=== PATIENT | male | born 1960 | race Caucasian/White ===

== ENCOUNTER 2020-07-04 18:45 | IRF | payer MEDICARE, SELFPAY ==
--- NOTE | 2020-07-04 18:21 | ADMGEN ---
This patient, Jair Mullins, was admitted to [facility] Room 230-02. Patient/family oriented to hospital policies and general routines including ID bracelet, bed and alarms, visiting hours, pain management, procedures, bathroom and other care routines, personal items, smoking policy, room service/diet, and visiting hours. Information on how to activate the Rapid Response Team has been discussed. Patient/Family are encouraged to report perceived risks to care and to ask questions if they do not understand what they are told or what they should do.
[2020-07-04 18:51] VITALS: BMI 22.0
[2020-07-04 18:52] VITALS: BP 155/84; PULSE 101; RESP 20; TEMP 36.4; O2SAT 100
--- NOTE | 2020-07-04 19:27 | PC.NURSE ---
Patient arrived on the floor at 1820, Patient and state they left the discharge paperwork at home, I called the hospital for them to fax d/c summary and med list. Patient's states she is not supposed to drive at night and will bring papers tomorrow. Dr. Paulson is aware. At 1930 hospital was called again for discharge notes.
[2020-07-04 20:35] VITALS: BP 127/65; PULSE 96; RESP 20; TEMP 36.6; O2SAT 100
[2020-07-04] MEDS: HYDROcodone/acetaminophen (*CRX) 5-325 MG TABLET 1 TAB (23:30)
[2020-07-05] MEDS: traMADol HCL (*CRX) 50 MG TABLET PO ×2 (00:54→09:07)
[2020-07-05 04:53] LABS: Basophils Percent Auto 0.4 % (0.2-1.2); Eosinophils Absolute Auto 0.1 K/mm3 (0-0.3); Eosinophils Percent Auto 1.6 % (0-4.4); Hemoglobin 8.4 g/dL (14.0-18.0); Immature Granulocyte Absolute 0.03 K/mm3 (0.00-0.031); Immature Granulocyte Percent A 0.4 % (0-0.5); Lymphocytes Absolute Auto 2.88 K/mm3 (0.9-3.2); Lymphocytes Percent Auto 35.2 % (18.3-44.2); Mean Corpuscular HGB Conc 31.1 g/dl (32-36); Mean Corpuscular Hemoglobin 26.7 pg (26-34); Mean Corpuscular Volume 85.7 fl (80-100); Mean Platelet Volume 10.5 fl (7.4-10.4); Monocytes Absolute Auto 0.9 K/mm3 (0.1-0.6); Neutrophils Absolute Auto 4.2 K/mm3 (1.3-6.7); Neutrophils Percent Auto 51.4 % (45.5-73.1); Platelet Count Result 199 k/mm3 (150-375); Red Blood Count 3.15 M/mm3 (4.6-6.20); White Blood Count 8.2 K/mm3 (4.5-10.0)
[2020-07-05 05:08] LABS: Alanine Aminotransferase 32 U/L (4-50); Albumin Level 3.7 g/dL (3.5-5.1); Alkaline Phosphatase 86 U/L (38-126); Anion Gap 6 mmol/L (8-16); Aspartate Amino Transferase 41 U/L (17-59); Bilirubin,Total 0.6 mg/dL (0.2-1.3); Blood Urea Nitrogen 11 mg/dL (9-20); Calcium 8.7 mg/dL (8.4-10.2); Carbon Dioxide 28 mmol/L (22-30); Chloride 100 mmol/L (98-107); Estimated CRCL calculation 101 ml/min; Estimated Glomerular Filt Rate > 60; Glucose 118 mg/dL (75-110); Potassium 3.9 mmol/L (3.4-5.0); Sodium 134 mmol/L (137-145)
[2020-07-05 05:35] LABS: Platelet Estimate Adequate (Adequate)
[2020-07-05 05:36] LABS: Hypochromasia 1+ (NORMAL); Microcytosis 1+ (NORMAL)
[2020-07-05 06:00] VITALS: BP 132/73; PULSE 90; RESP 20; TEMP 36.8; O2SAT 100
[2020-07-05] MEDS: MELATONIN 5 MG TABLET PO ×2 (06:48→22:08)
[2020-07-05] MEDS: RIVAROXABAN 2.5 MG TABLET PO ×2 (08:59→22:06)
[2020-07-05] MEDS: SENNOSIDES 8.6 MG TABLET PO ×2 (08:59→16:46)
[2020-07-05 09:00] VITALS: PULSE 90
[2020-07-05] MEDS: ASPIRIN 81 MG ENTERIC TABLET PO (09:00)
[2020-07-05] MEDS: METOPROLOL SUCCINATE EXT REL 25 MG TABCR PO (09:00)
[2020-07-05] MEDS: PREGABALIN (*CRX) 75 MG CAPSULE 150 MG PO ×2 (09:02→16:46)
--- NOTE | 2020-07-05 10:00 | WPDREHABHP ---
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 The patient is a 59-year-old gentleman with past medical history peripheral vascular disease with multiple revascularization of his right lower extremity who presented to [facility] on June 28, 2020 with severe right lower extremity pain. Patient underwent on January 2020 a right fem bypass. The graft occluded any underwent a thrombectomy and revision on April of 2020. This occluded. He then underwent a femoral arterial tibial artery bypass a few days later. Patient was doing well and graft was patent on 06/27/[address] Abreu in clinic. However patient was cleaning and bending his knee for approximately 5 minutes and had severe cramping with loss of sensation to his right lower extremity. Patient was seen in the emergency department were findings showed no evidence of blood flow to the right lower extremity. Non invasive study showed occlusion of the graft as well as occlusion of the pala right SFA, popliteal arteries and the right common femoral artery. Dr. Abreu was consulted in the ED. Patient was started on a heparin drip and IV Dilaudid for pain management on 06/30/2020 the patient underwent a right AKA with Dr. Abreu. postop course: Acute postoperative pain, hypertension, urinary retention with Espinosa catheter placed 06/30/20, acute blood loss anemia, hyponatremia, hyperglycemia, leukocytosis currently patient is controlled with oral analgesics for pain. Patient remains nonweightbearing to the right lower extremity. Patient is transferred to [facility] on Xarelto and aspirin for DVT prophylaxis until assessed further by surgeon after rehab. drove patient to [facility] from [place]. Apparently, and patient stopped at their house and his transferred was delayed for 3-4 hours. Discharge papers were left at their home. [facility] staffed called [facility] received the med list after numerous attempts. Today, has delivered the discharge paperwork. Therapy was initiated at the acute care facility and the patient transferred to us from [facility] on 07/04/20. COVID: The patient has not traveled outside the [place] or had contact with someone who is ill that his travel outside the [place] in the past 21 days. The patient has not traveled to an area of the [place] that is experiencing known transmission of the Coronavirus and has not had close personal contact with anyone that has. The patient does not have a fever. The patient is not experiencing lowers prior melvin illness symptoms. The patient had a negative COVID test on 06/28/2020. FALLS OR SURGERIES: The patient has had 3 surgical interventions (include this admission) in the 100 days prior to admission. They had no falls in the past year. They had no falls with injury in the past year. 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 Patient lives with his in a 2 story home with no steps to enter. The laundry is in the basement. The main bedroom and full bathroom is on the 1st floor. The patient was totally independent in all
[2020-07-05 13:12] VITALS: BMI 22.0
--- NOTE | 2020-07-05 13:27 | PCNSR ---
On 07/05/20, the student, Merary Guevara, provided care and completed [facility] documentation on this patient. I have reviewed the student's documentation and agree with the findings.
[2020-07-05 14:00] VITALS: BP 152/67; PULSE 110; RESP 20; TEMP 35.8; O2SAT 100
[2020-07-05 20:00] VITALS: PULSE 72; RESP 16; O2SAT 95
[2020-07-05 21:38] VITALS: BP 141/74; PULSE 72; RESP 16; TEMP 36.3; O2SAT 95
[2020-07-05] MEDS: ATORVASTATIN 40 MG TABLET PO (22:06)
[2020-07-06 06:00] VITALS: BP 137/78; PULSE 94; RESP 18; TEMP 36.4; O2SAT 100
[2020-07-06 08:00] VITALS: PULSE 94; RESP 18; O2SAT 100
[2020-07-06 09:20] VITALS: PULSE 94
[2020-07-06] MEDS: FENOFIBRATE 160 MG TABLET PO (09:20)
[2020-07-06] MEDS: RIVAROXABAN 2.5 MG TABLET PO ×2 (09:20→20:41)
[2020-07-06] MEDS: METOPROLOL SUCCINATE EXT REL 25 MG TABCR PO (09:20)
[2020-07-06] MEDS: PREGABALIN (*CRX) 75 MG CAPSULE 150 MG PO ×2 (09:24→17:15)
[2020-07-06] MEDS: SENNOSIDES 8.6 MG TABLET PO ×2 (09:24→17:15)
--- NOTE | 2020-07-06 09:50 | RPD ---
INDIVIDUALIZED PLAN OF CARE FOR Jair Mullins Brief Synthesis of Pre-Admission Screen, Post-Admission Evaluation and Therapy Evaluations: The patient presents to rehab with right leg arterial occlusion s/p right AKA on 06/28/2020. Comorbidities include peripheral vascular disease, hx non-Hodgkin lymphoma 2004, hyperlipidemia, GERD, peripheral neuropathy, anxiety, bipolar disorder, depression, Perez catheter placed 06/30/2020, acute postoperative pain, hypertension, t wave changes, acute blood loss anemia, hyponatremia, hyperglycemia, and leukocytosis. The complexity of the patient's medical management, nursing, and therapy needs require an inpatient rehab hospital stay with a physician-led interdisciplinary team approach. The patient?s needs will be best met in an intensive program vs. at a lower level of care. The patient requires physician services for medical oversight, management of post-op complications in the setting of present comorbidities, management of new diabetes mellitus diagnosis, and pain management. Post-op complications have included acute postoperative pain, hypertension, t wave changes, acute blood loss anemia, hyponatremia, hyperglycemia, leukocytosis, and urinary issue with perez catheter placed on 06/30/20. The patient requires nursing services for anticoagulation therapy, diabetes training, DVT prophylactics, IV administration, infection protection, medication management and education, pressure relief, and wound care. Deficits include:ADLs, Balance, Endurance, Family Training/Education, Mobility, Pain Management, ROM, Safety, Strength, and Transfers. Carding Doubler/Case Management for: Discharge Planning and Patient/Family Counseling Physical Therapy: 5 days per week for 90 minutes. Treatments may include: Therapeutic Exercise, Gait Training, Neuromuscular Re-education, Transfer Training, Community Reintegration, Bed Mobility, Patient/Family Education, Wheelchair Mobility Group Therapy/Concurrent Therapy Rationales: -Improve attention span during functional activities in a distracted environment. -Enhance problem solving and/or adequate judgment skills during functional activities in a distracted environment. -Promote increased safety awareness in a distracted environment to reduce fall risk with functional tasks, transfers, and ambulation to allow a more safe, self-sufficient return to the home environment. -Improve dynamic balance skills to promote safety and independence with functional activities in a distracted environment for maximum gain. Occupational Therapy: 5 days per week for 90 minutes. Treatments may include: Therapeutic Exercise, Therapeutic Activity, Cognitive Training, Self-Care Transfer Training, Community Reintegration, Home Management, Patient/Family Education, Wheelchair Mobility Training, Energy Conservation Training Group Therapy/Concurrent Therapy Rationales: -Allow therapist to observe and teach generalization and carry-over of skills learned in individual therapy. -Enhance problem solving and sequencing skills during therapeutic activities in a distracted environment. -Promote increased safety awareness in a realistic setting to reduce fall risk with functional tasks due to visual and verbal distractions. -Increase functional level with ADLs, ADL transfers and use of adaptive equipment through therapeutic activities with others while promoting safety to allow a more safe, self-sufficient return home. Medical Prognosis: Good Anticipated Length of Stay: 14 days Rehab Goals: Eating Goal: 06-Independent Oral Hygiene Goal: 06-Independent Toileting Hygiene Goal: 06-Independent Shower/Bathe Self Goal: 06-Independent Upper Body Dressing Goal: 06-Independent Lower Body Dressing Goal: 06-Independent Putting On/Taking Off Footwear Goal: 06-Independent Rolling Left and Right Goal: 06-Independent Sit to Lying Goal: 06-Independent Lying to Sitting on Side of Bed Goal: 06-Independent Sit to Stand Goal: 06-Independent Chair
[2020-07-06] MEDS: ASPIRIN 81 MG ENTERIC TABLET PO (12:23)
[2020-07-06 14:00] VITALS: BP 131/69; PULSE 100; RESP 20; TEMP 36.7; O2SAT 100
--- NOTE | 2020-07-06 14:58 | WPDNEURORHBP ---
Subjective Date/time seen: 07/06/20 14:58 patient seen this morning during physical therapy. Patient voices no complaints except for his stump pain Review of Systems Review of Systems: All systems reviewed & are unremarkable except as noted in HPI and below Functional Status Ambulation Ability Ability to Ambulate 10 Feet: Contact Guard Ability to Ambulate 50 Feet With 2 Turns: Contact Guard Ambulation Assistive Devices: Walker, Wheeled Transfers Ability Ability to Transfer In/Out of Chair: Standby Assistance Exam Narrative: Exam Narrative: head is normocephalic. Extraocular muscles are intact. Neck is supple. Heart rhythm is regular. Lungs are clear to auscultation. Abdomen is soft nontender. Bilateral upper extremity strength are 5/5 left lower extremity strength is 4/5 right stump reveals a serosanguineous strange it drainage that is present on the bandage. Incision was not examined today. Objective Data Vital Signs Vital Signs: Vital Signs - 24 hr 07/05/20 20:00 07/05/20 21:38 07/06/20 06:00 Temperature 36.3 C L 36.4 C Pulse Rate 72 72 94 Respiratory Rate 16 16 18 Blood Pressure 141/74 H 137/78 Pulse Oximetry 95 95 100 07/06/20 08:00 07/06/20 09:20 Temperature Pulse Rate 94 94 Respiratory Rate 18 Blood Pressure Pulse Oximetry 100 Intake/Output Intake/Output: Intake & Output 07/03/20 07/04/20 07/05/20 07/06/20 23:59 23:59 23:59 23:59 Intake Total 1200 480 Balance 1200 480 Meds/Results Medications: Active Medications Generic Name Dose Route Start Last Admin Trade Name Glennq PRN Reason Stop Dose Admin Acetaminophen 650 mg 07/05/20 10:37 Acetaminophen 325 Mg Tablet PO Q4H PRN Mild Pain (Scale Score 1-4) Hydrocodone Bitart/Acetaminophen 1 tab 07/04/20 23:21 Hydrocodone/Acetaminophen (*Crx) 5-325 Mg Tablet PO Q4H PRN Pain (Scale Score 7-10) Aspirin 81 mg 07/05/20 09:00 07/06/20 12:23 Aspirin 81 Mg Enteric Tablet PO 81 mg DAILY MANDY Administration Atorvastatin Calcium 40 mg 07/05/20 21:00 07/05/20 22:06 Atorvastatin 40 Mg Tablet PO 40 mg HS MANDY Administration Fenofibrate 160 mg 07/06/20 09:00 07/06/20 09:20 Fenofibrate 160 Mg Tablet PO 160 mg DAILY MANDY Administration Ibuprofen 800 mg 07/05/20 10:44 Ibuprofen 400 Mg Tablet PO TID PRN Pain 5-6 Melatonin 5 mg 07/05/20 00:25 07/05/20 22:08 Melatonin 5 Mg Tablet PO 5 mg HS MANDY Administration Metoprolol Succinate 25 mg 07/05/20 09:00 07/06/20 09:20 Metoprolol Succinate Ext Rel 25 Mg Tabcr PO 25 mg DAILY MANDY Administration Pantoprazole Sodium 40 mg 07/04/20 23:21 Pantoprazole 40 Mg Tablet PO QAM PRN Heartburn Pregabalin 150 mg 07/05/20 09:00 07/06/20 09:24 Pregabalin (*Crx) 75 Mg Capsule PO 150 mg BID MANDY Administration Rivaroxaban 2.5 mg 07/05/20 09:00 07/06/20 09:20 Rivaroxaban 2.5 Mg Tablet PO 2.5 mg Q12HR MANDY Administration Senna 8.6 mg 07/05/20 09:00 07/06/20 09:24 Sennosides 8.6 Mg Tablet PO 8.6 mg BID MANDY Administration Tramadol HCl 50 mg 07/04/20 23:21 07/05/20 09:07 Tramadol Hcl (*Crx) 50 Mg Tablet PO 50 mg Q6H PRN Administration Breakthrough Pain Progress Note: A&P Assessment and Plan (1) Amputation of right lower extremity above knee upon examination: Code(s): S78.111A - Complete traumatic amputation at level between right hip and knee, initial encounter Status: Acute (2) Phantom pain after amputation of lower extremity: Code(s): G54.6 - Phantom limb syndrome with pain Status: Acute (3) Peripheral vascular disease of extremity with claudication: Code(s): I73.9 - Peripheral vascular disease, unspecified Status: Acute (4) Urinary retention: Code(s): R33.9 - Retention of urine, unspecified Status: Acute (5) Hypertension: Code(s): I10 - Essential (primary) hypertension S
[2020-07-06] MEDS: traMADol HCL (*CRX) 50 MG TABLET PO (19:23)
[2020-07-06] MEDS: MELATONIN 5 MG TABLET PO (20:41)
[2020-07-06] MEDS: ATORVASTATIN 40 MG TABLET PO (20:41)
[2020-07-06 21:00] VITALS: PULSE 94; RESP 16; O2SAT 100
[2020-07-06 21:45] VITALS: BP 123/66; PULSE 94; RESP 16; TEMP 36.1; O2SAT 100
[2020-07-07] MEDS: HYDROcodone/acetaminophen (*CRX) 5-325 MG TABLET 1 TAB PO ×2 (01:28→20:14)
[2020-07-07 05:38] VITALS: BP 121/69; PULSE 88; RESP 18; TEMP 36.2; O2SAT 100
[2020-07-07 08:00] VITALS: PULSE 88; RESP 18; O2SAT 100
[2020-07-07 09:04] VITALS: PULSE 88
[2020-07-07] MEDS: RIVAROXABAN 2.5 MG TABLET PO ×2 (09:04→20:14)
[2020-07-07] MEDS: METOPROLOL SUCCINATE EXT REL 25 MG TABCR PO (09:04)
[2020-07-07] MEDS: FENOFIBRATE 160 MG TABLET PO (09:04)
[2020-07-07] MEDS: ASPIRIN 81 MG ENTERIC TABLET PO (09:05)
[2020-07-07] MEDS: PREGABALIN (*CRX) 75 MG CAPSULE 150 MG PO ×2 (09:07→16:47)
[2020-07-07] MEDS: SENNOSIDES 8.6 MG TABLET PO ×2 (09:07→16:47)
--- NOTE | 2020-07-07 12:54 | WPDNEURORHBP ---
Subjective Date/time seen: 07/07/20 12:54 patient is in good spirits. Stump pain is minimal Review of Systems Review of Systems: All systems reviewed & are unremarkable except as noted in HPI and below Functional Status Ambulation Ability Ability to Ambulate 10 Feet: Independent Ability to Ambulate 50 Feet With 2 Turns: Independent Ability to Ambulate 150 Feet: Independent Ambulation Assistive Devices: Walker, Wheeled Transfers Ability Ability to Transfer In/Out of Chair: Standby Assistance Exam Narrative: Exam Narrative: patient is in no acute distress patient is sitting up in the wheelchair. Upper extremity strength are 5/5 heart rate and rhythm is regular. Lungs are clear to auscultation abdomen soft nontender. Stump reveals minimal serosanguineous drainage. Good approximation. Patient is alert and orient x3 Objective Data Vital Signs Vital Signs: Vital Signs - 24 hr 07/06/20 14:00 07/06/20 21:00 07/06/20 21:45 Temperature 36.7 C 36.1 C L Pulse Rate 100 94 94 Respiratory Rate 20 16 16 Blood Pressure 131/69 123/66 Pulse Oximetry 100 100 100 07/07/20 05:38 07/07/20 08:00 07/07/20 09:04 Temperature 36.2 C L Pulse Rate 88 88 88 Respiratory Rate 18 18 Blood Pressure 121/69 Pulse Oximetry 100 100 Intake/Output Intake/Output: Intake & Output 07/04/20 07/05/20 07/06/20 07/07/20 23:59 23:59 23:59 23:59 Intake Total 1200 720 480 Balance 1200 720 480 Meds/Results Medications: Active Medications Generic Name Dose Route Start Last Admin Trade Name Freq PRN Reason Stop Dose Admin Acetaminophen 650 mg 07/05/20 10:37 Acetaminophen 325 Mg Tablet PO Q4H PRN Mild Pain (Scale Score 1-4) Hydrocodone Bitart/Acetaminophen 1 tab 07/04/20 23:21 07/07/20 01:28 Hydrocodone/Acetaminophen (*Crx) 5-325 Mg Tablet PO 1 tab Q4H PRN Administration Pain (Scale Score 7-10) Aspirin 81 mg 07/05/20 09:00 07/07/20 09:05 Aspirin 81 Mg Enteric Tablet PO 81 mg DAILY MANDY Administration Atorvastatin Calcium 40 mg 07/05/20 21:00 07/06/20 20:41 Atorvastatin 40 Mg Tablet PO 40 mg HS MANDY Administration Fenofibrate 160 mg 07/06/20 09:00 07/07/20 09:04 Fenofibrate 160 Mg Tablet PO 160 mg DAILY MANDY Administration Ibuprofen 800 mg 07/05/20 10:44 Ibuprofen 400 Mg Tablet PO TID PRN Pain 5-6 Melatonin 5 mg 07/05/20 00:25 07/06/20 20:41 Melatonin 5 Mg Tablet PO 5 mg HS MANDY Administration Metoprolol Succinate 25 mg 07/05/20 09:00 07/07/20 09:04 Metoprolol Succinate Ext Rel 25 Mg Tabcr PO 25 mg DAILY MANDY Administration Pantoprazole Sodium 40 mg 07/04/20 23:21 Pantoprazole 40 Mg Tablet PO QAM PRN Heartburn Pregabalin 150 mg 07/05/20 09:00 07/07/20 09:07 Pregabalin (*Crx) 75 Mg Capsule PO 150 mg BID MANDY Administration Rivaroxaban 2.5 mg 07/05/20 09:00 07/07/20 09:04 Rivaroxaban 2.5 Mg Tablet PO 2.5 mg Q12HR MANDY Administration Senna 8.6 mg 07/05/20 09:00 07/07/20 09:07 Sennosides 8.6 Mg Tablet PO 8.6 mg BID MANDY Administration Tramadol HCl 50 mg 07/04/20 23:21 07/06/20 19:23 Tramadol Hcl (*Crx) 50 Mg Tablet PO 50 mg Q6H PRN Administration Breakthrough Pain Progress Note: A&P Assessment and Plan (1) Amputation of right lower extremity above knee upon examination: Code(s): S78.111A - Complete traumatic amputation at level between right hip and knee, initial encounter Status: Acute (2) Phantom pain after amputation of lower extremity: Code(s): G54.6 - Phantom limb syndrome with pain Status: Acute (3) Peripheral vascular disease of extremity with claudication: Code(s): I73.9 - Peripheral vascular disease, unspecified Status: Acute (4) Urinary retention: Code(s): R33.9 - Retention of urine, unspecified Status: Acute (5) Hypertension: Code(s): I10 - Essential (primary) hypertension
[2020-07-07 14:00] VITALS: BP 118/87; PULSE 96; RESP 18; TEMP 36.4; O2SAT 100
[2020-07-07] MEDS: ATORVASTATIN 40 MG TABLET PO (20:14)
[2020-07-07] MEDS: MELATONIN 5 MG TABLET PO (20:14)
[2020-07-07 21:09] VITALS: BP 133/68; PULSE 93; RESP 20; TEMP 36.3; O2SAT 100
[2020-07-07] MEDS: IBUPROFEN 400 MG TABLET 800 MG PO (21:26)
[2020-07-08 05:48] VITALS: BP 100/59; PULSE 74; RESP 18; TEMP 36.4; O2SAT 100
--- NOTE | 2020-07-08 07:52 | PCPTNOTE ---
Mayela Meza PTA completed an inpatient rehab wheelchair evaluation on Jair [facility] on 07/08/2020. The patient is unable to safely and independently ambulate household distances due to their current impairments. Their diagnosis is Right AKA and their impairments include decreased strength, decreased endurance, decreased range of motion, decreased balance, lower extremity weakness. Jair's weight bearing status is weight-bearing as tolerated on L LE and NWB on R LE. The patient demonstrates significant functional mobility limitations that impair their ability to participate in mobility-related activities of daily living (MRADLs), including toileting, feeding, dressing, grooming, and bathing in the customary locations in the home. These limitations cannot be sufficiently resolved by the use of an appropriately fitted cane or walker. It is recommended that the patient utilize a wheelchair for functional mobility within the home in order to facilitate optimal safety, independence and participation in all MRADL's and adequately access their home environment on a regular basis. The patient's home provides adequate access between rooms, maneuvering space, and surfaces to accommodate the recommended wheelchair. The use of a wheelchair for functional mobility is strongly recommended and the patient is receptive to using the wheelchair. The use of this wheelchair will significantly improve the patient's ability to participate in MRADLS and the patient will use it on a regular basis in the home. This will facilitate optimal safety, independence, and participation. The patient has demonstrated sufficient physical and mental capabilities needed to safely propel a manual wheelchair that is provided in the home during a typical day. Recommended Wheelchair Frame: STANDARD Recommended Wheelchair Size: 18X18 Recommended Wheelchair Cushion:STANDARD Wheelchair Leg Recommendations: LEFT SWING AWAY LEG REST, RIGHT AKA RESIDUAL LIMB SUPPORT LEG REST -Anti-tippers are recommended due to patient demonstrating increased risk for falls. They would benefit from anti-tippers with added safety and stabilization. - Adjustable arm height is recommended because the patient requires an arm height that is different than that which is available using non-adjustable arms. The patient spends at least 2 hours per day in the wheelchair. Mayela Meza PTA 07/08/20 Evaluating Therapist Date I agree with and certify that the above recommendation is medically necessary. Referring Physician Date I agree with and certify that the above recommendation is medically necessary. Referring Physician Date
[2020-07-08 09:32] VITALS: PULSE 72
[2020-07-08] MEDS: PREGABALIN (*CRX) 75 MG CAPSULE 150 MG PO ×2 (09:32→17:41)
[2020-07-08] MEDS: METOPROLOL SUCCINATE EXT REL 25 MG TABCR PO (09:32)
[2020-07-08] MEDS: FENOFIBRATE 160 MG TABLET PO (09:33)
[2020-07-08] MEDS: RIVAROXABAN 2.5 MG TABLET PO ×2 (09:33→20:11)
[2020-07-08] MEDS: ASPIRIN 81 MG ENTERIC TABLET PO (09:33)
--- NOTE | 2020-07-08 09:34 | WPDNEURORHBP ---
Subjective Date/time seen: 07/08/20 09:34 Patient very tearful. Patient wishes to go home earlier than planned. Patient has been making quick gains and may be able to reach his goals. Examiner is willing to move discharge date up if goals are met. Patient is in agreement Review of Systems Review of Systems: All systems reviewed & are unremarkable except as noted in HPI and below Functional Status Ambulation Ability Ability to Ambulate 10 Feet: Independent Ability to Ambulate 50 Feet With 2 Turns: Independent Ability to Ambulate 150 Feet: Independent Ambulation Assistive Devices: Walker, Wheeled Transfers Ability Ability to Transfer In/Out of Chair: Standby Assistance Exam Narrative: Exam Narrative: patient is emotionally labile. Head is normocephalic. Heart rate and rhythm is regular. Lungs are clear to auscultation. Upper extremity strength are 5/5 left lower extremity strength is 5/5. Stump incision was not examined. Objective Data Vital Signs Vital Signs: Vital Signs - 24 hr 07/07/20 14:00 07/07/20 21:09 07/08/20 05:48 Temperature 36.4 C 36.3 C L 36.4 C L Pulse Rate 96 93 74 Respiratory Rate 18 20 18 Blood Pressure 118/87 133/68 100/59 L Pulse Oximetry 100 100 100 07/08/20 09:32 Temperature Pulse Rate 72 Respiratory Rate Blood Pressure Pulse Oximetry Intake/Output Intake/Output: Intake & Output 07/05/20 07/06/20 07/07/20 07/08/20 23:59 23:59 23:59 23:59 Intake Total 1008 802 3452 480 Balance 0360 318 9679 480 Meds/Results Medications: Active Medications Generic Name Dose Route Start Last Admin Trade Name Freq PRN Reason Stop Dose Admin Acetaminophen 650 mg 07/05/20 10:37 Acetaminophen 325 Mg Tablet PO Q4H PRN Mild Pain (Scale Score 1-4) Hydrocodone Bitart/Acetaminophen 1 tab 07/04/20 23:21 07/07/20 20:14 Hydrocodone/Acetaminophen (*Crx) 5-325 Mg Tablet PO 1 tab Q4H PRN Administration Pain (Scale Score 7-10) Aspirin 81 mg 07/05/20 09:00 07/08/20 09:33 Aspirin 81 Mg Enteric Tablet PO 81 mg DAILY MANDY Administration Atorvastatin Calcium 40 mg 07/05/20 21:00 07/07/20 20:14 Atorvastatin 40 Mg Tablet PO 40 mg HS MANDY Administration Fenofibrate 160 mg 07/06/20 09:00 07/08/20 09:33 Fenofibrate 160 Mg Tablet PO 160 mg DAILY MANDY Administration Ibuprofen 800 mg 07/05/20 10:44 07/07/20 21:26 Ibuprofen 400 Mg Tablet PO 800 mg TID PRN Administration Pain 5-6 Melatonin 5 mg 07/05/20 00:25 07/07/20 20:14 Melatonin 5 Mg Tablet PO 5 mg HS MANDY Administration Metoprolol Succinate 25 mg 07/05/20 09:00 07/08/20 09:32 Metoprolol Succinate Ext Rel 25 Mg Tabcr PO 25 mg DAILY MANDY Administration Pantoprazole Sodium 40 mg 07/04/20 23:21 07/08/20 09:33 Pantoprazole 40 Mg Tablet PO 40 mg QAM PRN Administration Heartburn Pregabalin 150 mg 07/05/20 09:00 07/08/20 09:32 Pregabalin (*Crx) 75 Mg Capsule PO 150 mg BID MANDY Administration Rivaroxaban 2.5 mg 07/05/20 09:00 07/08/20 09:33 Rivaroxaban 2.5 Mg Tablet PO 2.5 mg Q12HR MANDY Administration Senna 8.6 mg 07/05/20 09:00 07/08/20 09:33 Sennosides 8.6 Mg Tablet PO Not Given BID MANDY Tramadol HCl 50 mg 07/04/20 23:21 07/06/20 19:23 Tramadol Hcl (*Crx) 50 Mg Tablet PO 50 mg Q6H PRN Administration Breakthrough Pain Progress Note: A&P Assessment and Plan (1) Amputation of right lower extremity above knee upon examination: Code(s): S78.111A - Complete traumatic amputation at level between right hip and knee, initial encounter Status: Acute (2) Phantom pain after amputation of lower extremity: Code(s): G54.6 - Phantom limb syndrome with pain Status: Acute (3) Peripheral vascular disease of extremity with claudication: Code(s): I73.9 - Peripheral vascular disease, unspecified Status: Acute (4) Urinary retention: Code(s): R33.9 - Retenti
[2020-07-08 14:00] VITALS: BP 126/84; PULSE 100; RESP 20; TEMP 36.3; O2SAT 99
[2020-07-08] MEDS: SENNOSIDES 8.6 MG TABLET PO (17:41)
[2020-07-08] MEDS: HYDROcodone/acetaminophen (*CRX) 5-325 MG TABLET 1 TAB PO (20:11)
[2020-07-08] MEDS: MELATONIN 5 MG TABLET PO (20:11)
[2020-07-08] MEDS: ATORVASTATIN 40 MG TABLET PO (20:11)
[2020-07-08 21:14] VITALS: BP 145/77; PULSE 96; RESP 20; TEMP 36.4; O2SAT 100
[2020-07-08] MEDS: IBUPROFEN 400 MG TABLET 800 MG PO (22:33)
[2020-07-09] MEDS: HYDROcodone/acetaminophen (*CRX) 5-325 MG TABLET 1 TAB PO ×3 (03:38→23:08)
--- NOTE | 2020-07-09 03:55 | PC.NURSE ---
Daylight Savings Time For Daylight Savings Time Ending in the Fall - Clocks are moved back. For Daylight Savings Time Beginning in the Spring - Clocks are moved ahead. For [facility], the time of change occurs at 0200 hrs. Time is taken from the weather observer. This entry on the patient's chart recognizes the change in time reflected during documentation. Example: 2 entries for vital signs may be charted for 0200 hrs.
[2020-07-09 04:39] VITALS: BP 136/76; PULSE 76; RESP 18; TEMP 36.4; O2SAT 99
[2020-07-09 08:27] VITALS: PULSE 76
[2020-07-09] MEDS: METOPROLOL SUCCINATE EXT REL 25 MG TABCR PO (08:27)
[2020-07-09] MEDS: RIVAROXABAN 2.5 MG TABLET PO ×2 (08:27→20:19)
[2020-07-09] MEDS: ASPIRIN 81 MG ENTERIC TABLET PO (08:27)
[2020-07-09] MEDS: FENOFIBRATE 160 MG TABLET PO (08:28)
[2020-07-09] MEDS: SENNOSIDES 8.6 MG TABLET PO ×2 (08:28→16:55)
[2020-07-09] MEDS: PREGABALIN (*CRX) 75 MG CAPSULE 150 MG PO ×2 (08:30→16:55)
--- NOTE | 2020-07-09 10:43 | WPDNEURORHBP ---
Subjective Date/time seen: 07/09/20 10:43 Patient is in good spirits. Patient wishes to be discharged tomorrow. Patient feels that he is ready for discharge. Review of Systems Review of Systems: All systems reviewed & are unremarkable except as noted in HPI and below Functional Status Ambulation Ability Ability to Ambulate 10 Feet: Independent Ability to Ambulate 50 Feet With 2 Turns: Independent Ability to Ambulate 150 Feet: Independent Ambulation Assistive Devices: Walker, Wheeled Transfers Ability Ability to Transfer In/Out of Chair: Standby Assistance Exam Narrative: Exam Narrative: head is normocephalic. Extraocular muscles are intact. Neck is supple. Lungs are clear to auscultation. Abdomen is soft nontender. Upper extremity strength is 5/5 left lower extremity strength is 4+ out of 5. Incision was not viewed today. Patient is approaching independence in all levels of ADLs transfers and gait. Objective Data Vital Signs Vital Signs: Vital Signs - 24 hr 07/08/20 14:00 07/08/20 21:14 07/09/20 04:39 Temperature 36.3 C L 36.4 C L 36.4 C Pulse Rate 100 96 76 Respiratory Rate 20 20 18 Blood Pressure 126/84 145/77 H 136/76 Pulse Oximetry 99 100 99 07/09/20 08:27 Temperature Pulse Rate 76 Respiratory Rate Blood Pressure Pulse Oximetry Intake/Output Intake/Output: Intake & Output 07/06/20 07/07/20 07/08/20 07/10/20 23:59 23:59 23:59 00:59 Intake Total 720 1440 960 240 Balance 720 1440 960 240 Meds/Results Medications: Active Medications Generic Name Dose Route Start Last Admin Trade Name Freq PRN Reason Stop Dose Admin Acetaminophen 650 mg 07/05/20 10:37 Acetaminophen 325 Mg Tablet PO Q4H PRN Mild Pain (Scale Score 1-4) Hydrocodone Bitart/Acetaminophen 1 tab 07/04/20 23:21 07/09/20 03:38 Hydrocodone/Acetaminophen (*Crx) 5-325 Mg Tablet PO 1 tab Q4H PRN Administration Pain (Scale Score 7-10) Aspirin 81 mg 07/05/20 09:00 07/09/20 08:27 Aspirin 81 Mg Enteric Tablet PO 81 mg DAILY MANDY Administration Atorvastatin Calcium 40 mg 07/05/20 21:00 07/08/20 20:11 Atorvastatin 40 Mg Tablet PO 40 mg HS MANDY Administration Fenofibrate 160 mg 07/06/20 09:00 07/09/20 08:28 Fenofibrate 160 Mg Tablet PO 160 mg DAILY MANDY Administration Ibuprofen 800 mg 07/05/20 10:44 07/08/20 22:33 Ibuprofen 400 Mg Tablet PO 800 mg TID PRN Administration Pain 5-6 Melatonin 5 mg 07/05/20 00:25 07/08/20 20:11 Melatonin 5 Mg Tablet PO 5 mg HS MANDY Administration Metoprolol Succinate 25 mg 07/05/20 09:00 07/09/20 08:27 Metoprolol Succinate Ext Rel 25 Mg Tabcr PO 25 mg DAILY MANDY Administration Pantoprazole Sodium 40 mg 07/04/20 23:21 Pantoprazole 40 Mg Tablet PO QAM PRN Heartburn Pregabalin 150 mg 07/05/20 09:00 07/09/20 08:30 Pregabalin (*Crx) 75 Mg Capsule PO 150 mg BID MANDY Administration Rivaroxaban 2.5 mg 07/05/20 09:00 07/09/20 08:27 Rivaroxaban 2.5 Mg Tablet PO 2.5 mg Q12HR MANDY Administration Senna 8.6 mg 07/05/20 09:00 07/09/20 08:28 Sennosides 8.6 Mg Tablet PO 8.6 mg BID MANDY Administration Tramadol HCl 50 mg 07/04/20 23:21 07/06/20 19:23 Tramadol Hcl (*Crx) 50 Mg Tablet PO 50 mg Q6H PRN Administration Breakthrough Pain Progress Note: A&P Assessment and Plan (1) Amputation of right lower extremity above knee upon examination: Code(s): S78.111A - Complete traumatic amputation at level between right hip and knee, initial encounter Status: Acute (2) Phantom pain after amputation of lower extremity: Code(s): G54.6 - Phantom limb syndrome with pain Status: Acute (3) Peripheral vascular disease of extremity with claudication: Code(s): I73.9 - Peripheral vascular disease, unspecified Status: Acute (4) Urinary retention: Code(s): R33.9 - Retention of urine, unspecified Status: Acute
[2020-07-09 14:00] VITALS: BP 142/70; PULSE 81; RESP 20; TEMP 36.7; O2SAT 100
[2020-07-09 20:07] VITALS: BP 168/74; PULSE 96; RESP 20; TEMP 36.2; O2SAT 100
[2020-07-09] MEDS: ATORVASTATIN 40 MG TABLET PO (20:19)
[2020-07-09] MEDS: MELATONIN 5 MG TABLET PO (20:19)
[2020-07-10] MEDS: HYDROcodone/acetaminophen (*CRX) 5-325 MG TABLET 1 TAB PO (03:05)
[2020-07-10 06:00] VITALS: BP 131/69; PULSE 78; RESP 16; TEMP 36.3; O2SAT 100
[2020-07-10] MEDS: PREGABALIN (*CRX) 75 MG CAPSULE 150 MG PO (08:28)
[2020-07-10] MEDS: ASPIRIN 81 MG ENTERIC TABLET PO (08:28)
[2020-07-10] MEDS: SENNOSIDES 8.6 MG TABLET PO (08:28)
[2020-07-10 08:29] VITALS: PULSE 78
[2020-07-10] MEDS: FENOFIBRATE 160 MG TABLET PO (08:29)
[2020-07-10] MEDS: METOPROLOL SUCCINATE EXT REL 25 MG TABCR PO (08:29)
[2020-07-10] MEDS: RIVAROXABAN 2.5 MG TABLET PO (08:29)
--- NOTE | 2020-07-10 09:03 | PM.DS ---
DS: Admitting Diagnosis Admitting Diagnosis Admitting Diagnosis: Right AKA DS: Discharge Diagnosis Discharge Diagnosis (1) Amputation of right lower extremity above knee upon examination: Code(s): S78.111A - Complete traumatic amputation at level between right hip and knee, initial encounter Status: Acute (2) Phantom pain after amputation of lower extremity: Code(s): G54.6 - Phantom limb syndrome with pain Status: Acute (3) Peripheral vascular disease of extremity with claudication: Code(s): I73.9 - Peripheral vascular disease, unspecified Status: Acute (4) Hypertension: Code(s): I10 - Essential (primary) hypertension Status: Acute (5) GERD (gastroesophageal reflux disease): Code(s): K21.9 - Gastro-esophageal reflux disease without esophagitis Status: Acute (6) Peripheral neuropathy: Code(s): G62.9 - Polyneuropathy, unspecified Status: Acute (7) Hyperlipidemia: Code(s): E78.5 - Hyperlipidemia, unspecified Status: Acute DS: Summary Hospital Course Reason for hospitalization: ADMISSION FUNCTION: Eating [Set Up Only] Oral Care [] Toileting Hygiene [] Shower/Bathing [] Upper Body Dressing [] Lower Body Dressing [] Donning/[place] Footwear [] Rolling Left and Right [] Sit to Lying [] Lying to Sitting [] Sit to Stand [] Bed to Chair Transfers [] Toilet Transfers [] Car Transfers [] Walking 10' [] Walking 50' with Two Turns [] Walking 150' [] Curb or Step [] 4 Steps [] 12 Steps [] Picking Up Object [] [Wheelchair Mobility 50'] [] [Wheelchair Mobility 150'] [] GOALS: Eating [INDEPENDENT] Oral Care [INDEPENDENT] Toileting Hygiene [INDEPENDENT] Shower/Bathing [INDEPENDENT] Upper Body Dressing [INDEPENDENT] Lower Body Dressing [INDEPENDENT] Donning/[place] Footwear [INDEPENDENT] Rolling Left and Right [INDEPENDENT] Sit to Lying [INDEPENDENT] Lying to Sitting [INDEPENDENT] Sit to Stand [INDEPENDENT] Bed to Chair Transfers [INDEPENDENT] Toilet Transfers [INDEPENDENT] Car Transfers [INDEPENDENT] Walking 10' [INDEPENDENT] Walking 50' with Two Turns [INDEPENDENT] Walking 150' [INDEPENDENT] Curb or Step [INDEPENDENT] 4 Steps [INDEPENDENT] 12 Steps [INDEPENDENT] Picking Up Object [INDEPENDENT] [Wheelchair Mobility 50'] [INDEPENDENT] [Wheelchair Mobility 150'] [INDEPENDENT] DISCHARGE PERFORMANCE: Eating [INDEPENDENT] Oral Care [INDEPENDENT] Toileting Hygiene [INDEPENDENT] Shower/Bathing [INDEPENDENT] Upper Body Dressing [INDEPENDENT] Lower Body Dressing [INDEPENDENT] Donning/[place] Footwear [INDEPENDENT] Rolling Left and Right [INDEPENDENT] Sit to Lying [INDEPENDENT] Lying to Sitting [INDEPENDENT] Sit to Stand [INDEPENDENT] Bed to Chair Transfers [INDEPENDENT] Toilet Transfers [INDEPENDENT] Car Transfers [INDEPENDENT] Walking 10' [INDEPENDENT] Walking 50' with Two Turns [INDEPENDENT] Walking 150' [INDEPENDENT] Curb or Step [INDEPENDENT] 4 Steps [INDEPENDENT] 12 Steps [INDEPENDENT] Picking Up Object [INDEPENDENT] [Wheelchair Mobility 50'] [INDEPENDENT] [Wheelchair Mobility 150'] [INDEPENDENT] The patient had [no falls]. Hospital Course: this is a 59-year-old gentleman with past medical history of peripheral vascular disease with multiple revascularization and presented to [facility] on 06/28/2020 with severe right lower extremity pain. Noninvasive study showed occlusion of the graft as well as occlusion of the [place] right SFA, popliteal arteries in the right common femoral artery. Patient was placed on a heparin drip with recommendations for surgical intervention of a right above knee amputation. On 06/30/2020 the patient underwent a right AKA with Dr. Abreu. Patient was then transferred to [facility] unit. Patient remained medically stable at time of discharge. Stump pain was relatively mild. Patient took the occasional oxycodone and tramadol. Patient has prescriptions of this medication at
== END 2020-07-10 11:05 | disposition home or self-care (01) | DRG 561 ==
PROVIDERS: Admitting Provider Physical Medicine & Rehabilitation; PCP Internal Medicine; Visit Provider Physical Medicine & Rehabilitation
DX: Z47.81 Encounter for orthopedic aftercare following surgical amputation (principal); Z89.611 Acquired absence of right leg above knee; I73.9 Peripheral vascular disease, unspecified; G62.9 Polyneuropathy, unspecified; E78.5 Hyperlipidemia, unspecified; F31.9 Bipolar disorder, unspecified; G54.6 Phantom limb syndrome with pain; K21.9 Gastro-esophageal reflux disease without esophagitis; I10 Essential (primary) hypertension; R73.9 Hyperglycemia, unspecified; Z85.72 Personal history of non-Hodgkin lymphomas; Z87.891 Personal history of nicotine dependence
CPT/HCPCS: 36415; 80053; 85025; 97110; 97116; 97161; 97165; 97530; 97535; 97542; A9270